=== PATIENT | male | born 1955 | race Asian ===

== ENCOUNTER 2020-01-15 09:20 | Emergency (ER) | payer SELFPAY ==
[~2020-01-15] VITALS: Ht 175.3 cm; Wt 81.6 kg
[2020-01-15 09:32] VITALS: BP 121/90
== END 2020-01-15 11:07 | disposition home or self-care (01) ==
LOC: ER 09:20
DX: J40 Bronchitis, not specified as acute or chronic (principal)
CPT/HCPCS: 71045